=== PATIENT | male | born 1965 | race Caucasian/White ===

== ENCOUNTER 2020-06-03 19:03 | Emergency (ER) | payer BC ==
[~2020-06-03] VITALS: Ht 177.8 cm; Wt 77.1 kg
[2020-06-03 19:33] VITALS: BP 129/93
--- NOTE | 2020-06-03 19:33 | NUR ---
ED Nurse Note: pt placed in OB. Pt walked into ED from home referred by primary MD Christofer Watson to receive Bam transfusion. Pt states he tested positive for COVID19 on Sunday. Pt is AAOx4, breathing even and unlabored. VSS in triage.
[2020-06-03] MEDS ORDERED: Regeneron EUA 2,400 MG in NS 255 ML IVPB SCH (19:45)
[2020-06-03] MEDS ORDERED: Regeneron EUA MISC ONE (19:45)
--- NOTE | 2020-06-03 19:45 | NUR ---
ED Nurse Note: EDMD at bedside explaining risk vs benefits of receiving Regeneron infusion. Pt given info packet and information reviewed with pt, pt stated understanding of instructions. Pt consented to receiving Regeneron Infusion.
--- NOTE | 2020-06-03 19:47 | Emergency Room Report ---
History of Present Illness General Chief Complaint: General Complaint Source: Patient Present Illness HPI Disclaimer: Please note that this report is being documented using [employer] technology. This can lead to erroneous entry secondary to incorrect interpretation by the dictating instrument. HPI: 54-year-old male with a history of COPD presents for monoclonal antibody infusion. Patient tested positive for COVID-19 on 06/01 by rapid antigen test. Has been feeling feverish, headache, intermittent cough, diarrhea for 1 day now resolved, fatigue and brain fog for the past 5 days. Reports intermittent shortness of breath but not sustained. Denies chest pain or palpitations. States he had a prior allergic reaction to clavulanic acid as part of Augmentin regimen but otherwise no major adverse reactions to medications noted. Sent in by his security officers and guards for infusion. 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 EOMI. Resp: Normal work of breathing. No cough. No wheezing during exam Skin: Intact. No abrasions, laceration or rash over the exposed skin MSK: Normal tone and bulk. Moving all extremities. No obvious deformity. Neuro: Awake and alert. Mentating appropriately Head: atraumatic Eyes: bilateral eye normal inspection, bilateral eye PERRL ENT: hearing grossly normal Cardiovascular #2: 2+ carotid (R), 2+ carotid (L), 2+ radial (R), 2+ radial (L), 2+ dorsalis pedis (R), 2+ dorsalis pedis (L) Medical Decision Making Diagnostic Impression: Primary Impression: COVID-19 ER Course 54-year-old male history of COPD tested positive for COVID-19 on 06/01 presents for monoclonal antibody infusion at the request of his security officers and guards. Arrives with stable vital signs. No acute distress. Provided with infusion drug fact sheet for patients who are considering receiving IV infusion of Regeneron. Patient understands and is aware that this medication is authorized for emergency use by the FDA and is still undergoing full testing. Understands monitoring necessary following infusion. Patient understands that Regeneron is intended to reduce symptoms and prevent hospitalization however the patient may require further testing, interventions and even hospitalization if symptoms worsen. Patient understands this is not a cure for COVID-19 infection. Addressed all patient questions. They have consented to receive monoclonal antibody infusion and for monitoring 1 hour post infusion for anaphylactic reaction. Infusion was administered via IV over the duration of 1 hour. The patient was monitored and observed for any reactions to infusion that require acute medical intervention. The patient did not have any significant reactions during the 1 hour observation period following infusion and is stable for discharge and outpatient follow-up with PMD. Instructed to return with new or worsening symptoms. Understand agree with this treatment plan. Last Vital Signs Date Time Temp Pulse Resp B/P (MAP) Pulse Ox O2 Delivery O2 Flow Rate FiO2 06/03/20 19:33 99.3 88 22 129/93 96 Room Air Disposition: HOME, SELF-CARE Condition: Stable Referrals: Mahendra Barnes MD (PCP) Charan Shrestha MD Jun 03, 2020 19:47
--- NOTE | 2020-06-03 20:09 | NUR ---
ED Nurse Note: IV placed on pt, fluids and blanket offered for comfort. Informed pt we are waiting for pharmacy to deliver medication.
--- NOTE | 2020-06-03 20:20 | NUR ---
ED Nurse Note: EMERGENCY CONTACT Christa Connor (sister)
[2020-06-03 20:21] VITALS: BP 140/100
--- NOTE | 2020-06-03 20:21 | NUR ---
ED Nurse Note: Regeneron infusion initiated, monitored pt for fist 10 minutes. No signs of adverse reaction observed.
[2020-06-03 20:31] VITALS: BP 131/88
[2020-06-03 21:30] VITALS: BP 114/80
--- NOTE | 2020-06-03 21:30 | NUR ---
ED Nurse Note: Bam infusion completed. Will monitor pt for 1 hour. No complaints from pt at the moment. No signs of infusion reaction.
[2020-06-03 22:25] VITALS: BP 127/74
--- NOTE | 2020-06-03 22:25 | NUR ---
ER DISCHARGE NOTE: Patient is cleared to be discharged per ERMD, pt is aox4, on room air, with stable vital signs. Pt monitored for 1 hour after infusion. pt was given dc intructions, bam info packet with instructions to f/u with PMD, pt was able to verbalize understanding, pt id band and iv site removed without complications. pt is able to ambulate with steady gait. pt took all belongings.
== END 2020-06-03 22:25 | disposition home or self-care (01) ==
LOC: EMR 19:30
DX: U07.1 COVID-19 (principal); Z23 Encounter for immunization; R05 Cough; R51.9 Headache, unspecified; R53.83 Other fatigue; R06.02 Shortness of breath; J44.9 Chronic obstructive pulmonary disease, unspecified; Z88.8 Allergy status to other drugs, medicaments and biological substances; Z91.018 Allergy to other foods
CPT/HCPCS: 96365; 99284; J7050; Q0243